=== PATIENT | female | born 1965 | race Caucasian/White ===

== ENCOUNTER 2022-06-05 15:26 | Observation (INO) | payer OTHER, SELFPAY ==
[2022-06-05] VITALS (10 sets, daily range): BP systolic 111–175; BP diastolic 61–98; PULSE 54–87; RESP 16–18; TEMP 36.4–36.9; O2SAT 90–100; BMI 34.7
[2022-06-05] MEDS: 0.9% Normal Saline 1,000 ML 1000 ML IV (15:41)
--- NOTE | 2022-06-05 15:45 | EDS_ITS ---
HPI HPI - GI History of Present Illness Chief Complaint: Abd Pain Narrative Narrative: 57-year-old female presenting with chief complaint of right-sided abdominal pain. Started yesterday and kind of the right flank and radiated to the back and today localizes more to the right flank and the right lower quadrant. She had an outpatient CAT scan today which showed a 3 cm ovarian cyst on the right side as well as acute appendicitis. Patient reports that she had a temperature of 100 ?F yesterday and nausea yesterday. She states she feels a little bit better today. She has not been vomiting. She last ate Ramen noodles at 2 PM. She was able to keep this down. She admits to a little bit of diarrhea. She has not had any coughing or shortness of breath. 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 Home Medications NK 06/05/22 [History Last Taken Unknown] Allergy/AdvReac Type Severity Reaction Status Date / Time Penicillins [PCN] Allergy Hives Verified 06/05/22 15:40 Surgical History Hx of tonsillectomy Social History Smoking Status: Current every day smoker tobacco type: cigarettes ROS ROS ED Constitutional Constitutional ED: Reports chills and fever(s) ENT ENT ED: Denies rhinorrhea or sore throat Cardiovascular Cardiovascular: Denies chest pain, palpitations or racing heartbeat Respiratory/Chest Respiratory/Chest: Denies cough, dyspnea or dyspnea on exertion Gastrointestinal Gastrointestinal: Reports abdominal pain, diarrhea and nausea Genitourinary Genitourinary ED: Denies dysuria Musculoskeletal Musculoskeletal: Denies arthralgias Integumentary Denies abscess or Abrasions Neurologic Neurologic: Denies headache(s) or paresthesias Psychiatric Psychiatric: Denies anxiety or depression Endocrine Endocrinology: Denies polydipsia or polyphagia EXAM Physical Exam Const Vital Signs: 06/05/22 15:27 06/05/22 17:39 Temperature 97.6 F L 98.3 F Temperature Source Temporal Oral Pulse Rate 68 54 L Respiratory Rate 18 16 Blood Pressure 156/95 H 148/94 H Blood Pressure Mean 115 112 Pulse Ox 97 96 Oxygen Delivery Method Room Air Room Air Positive well nourished General Appearance ED: NAD; Negative for pallor HEENT Reports moist mucous membranes normocephalic and atraumatic Eyes PERRL and EOMs intact bilaterally General Eye ED: Negative for pale conjunctiva or scleral icterus Resp normal respiratory effort and clear to auscultation bilaterally Cardio regular rate and regular rhythm GI Palpation: tender RLQ and RUQ Extremity full ROM Neuro CN's II-XII intact bilaterally Sensorium / Orientation: alert, oriented to person, oriented to place and oriented to time Motor Exam: strength 5/5 throughout Psych mental status grossly normal and thought process normal Skin no wounds General Skin Exam: Negative for jaundice or pallor MDM MDM MDM Narrative Medical decision making narrative: Patient presenting with abdominal pain and has a CT scan which shows acute appendicitis. IV access was obtained. CBC and CMP are within normal limits. Lipase is normal. Urinalysis shows a small amount of occult blood. There is no evidence of urinary infection. Rapid COVID-negative. Patient was given IV fluids but declines analgesia or antiemetics. Patient discussed with Dr. Hoyos who is on-call for surgery. She will be kept NPO. He recommended giving her Cipro due to her penicillin allergy. He will take her to the OR today for appendectomy. Impression: 1. Acute appendicitis Lab Data Attestation: I reviewed the patient's lab results. Labs: Laboratory Results - last 24 hr 06/05/22 06/05/22 06/05/22 15:40 15:40 16:05 WBC 9.7 RBC 5.11 Hgb 15.2 H Hct 45.5 MCV 89.0 MCH 29.7 MCHC 33.4 RDW Std Deviation 41.5 RDW Coeff of Cleo 12.7 Plt Count 259 MPV 9.6 Immature Gran % (Auto) 0.200 Neut % (Auto) 63.3 Lymph % (Auto) 24.4 [place] % (Auto) 9.4 Eos % (Auto) 2.3 Baso % (Auto) 0.4 Absolute Neuts (auto) 6.1 Absolute Lymphs (auto) 2.36 Nucleated RBC % 0 Sodium 144 Potassium 3.5 Chloride 107 Carbon Dioxide 29.0 Anion Gap 8 BUN 14 Creatinine 0.97 Estim Creat Clear Calc 50.61 Est GFR (MDRD) Af Amer 76 Est GFR (MDRD) Non-Af 63 BUN/Creatinine Ratio 14.4 Glucose 98 Calcium 9.0 Total Bilirubin 0.50 Direct Bilirubin 0.12 AST 18 ALT 20 Alkaline Phosphatase 85 Total Protein 7.1 Albumin 3.3 Globulin 3.8 Lipase 107 Urine Color Straw Urine Clarity Clear Urine pH 7.0 Ur Specific [place] 1.010 Urine Protein Negative Urine Glucose (UA) Normal Urine Ketones Negative Urine Occult Blood 10 H Urine Nitrite Negative Urine Bilirubin Negative Urine Urobilinogen Normal Ur Leukocyte Esterase Negative Urine RBC 0-5 SEEN Urine WBC 0 SEEN Ur Squamous Epith Cells 5-10 SEEN Urine Bacteria 1+ Urine Mucus 0 SEEN Discharge Plan Triage Chief Complaint: Abd Pain ED Provider: Azar Melendez Dx/Rx/DC Orders Prescriptions: No Action NK Primary Care Provider: Ángela Mario Referrals: Ángela Mario DO [Primary Care Provider] -
[2022-06-05 15:51] LABS: Absolute Lymphocyte Count 2.36 X10^3/uL (0.83-4.51); Absolute Neutrophil Count 6.1 X10^3/uL (2.0-7.7); Basophil# 0.04 X10^3/uL; Basophil% 0.4 % (0-1); Eosinophil# 0.22 X10^3/uL; Eosinophils% 2.3 % (0-5); Hematocrit 45.5 % (37-47); Hemoglobin 15.2 g/dL (12.0-15.0); Lymphocyte # 2.36 X10^3/ul (0.83-4.51); Lymphocyte % 24.4 % (19-41); Mean Corp Hgb Conc 33.4 g/dL (32-36); Mean Corpuscular Hgb 29.7 pg (27.0-32.0); Mean Platelet Vol. 9.6 fl (6.2-12.0); Monocyte# 0.91 X10^3/uL; Monocyte% 9.4 % (0-10); NRBC Flagged by Analyzer 0 % (0-5); Neutrophil # 6.12 X10^3/uL (2.7-7.7); Neutrophil % 63.3 % (47-70); Platelet Count 259 K/mm3 (150-450); RBC Distribution Width CV 12.7 % (11.6-14.6); RBC Distribution Width SD 41.5 fl (35.1-43.9); Red Blood Count 5.11 M/mm3 (4.2-5.4); White Blood Count 9.7 K/mm3 (4.4-11.0)
[2022-06-05] MEDS: Ciprofloxacin 400 MG/200 ML BAG 200 MG IV (16:04)
[2022-06-05 16:09] LABS: Mucous, Urine 0 SEEN /hpf (<or=2+); White Blood Cells 0 SEEN /hpf (0-5)
[2022-06-05 16:10] LABS: AST(SGOT) 18 U/L (15-37); Alanine Aminotransfer ALT/SGPT 20 U/L (13-56); Albumin, Serum 3.3 g/dL (3.2-5.0); Alkaline Phosphatase 85 U/L (45-117); Anion Gap 8 (5-15); BUN 14 mg/dL (7-18); BUN/Creat Ratio 14.4 RATIO (10-20); Bilirubin, Direct 0.12 mg/dL (0.00-0.30); Chloride 107 mmol/L (98-107); Creatinine, Serum 0.97 mg/dL (0.55-1.02); EST Glomerular Filtration Rate 63 mL/min (>60); Est Glom Filt Rate - Afr Amer 76 mL/min (>60); Estimated Creatinine Clearance 50.61 ml/min; Globulin 3.8 g/dL (2.2-4.2); Glucose 98 mg/dL (74-106); Lipase 107 U/L (73-393); Potassium 3.5 mmol/L (3.5-5.1); Protein, Total 7.1 g/dL (6.4-8.2); Sodium Level 144 mmol/L (136-145)
[2022-06-05 16:10] LABS: Color, Urine Straw (Yellow); Glucose, Dipstick Normal (Normal); Ketone-Dipstick Negative (Negative); Leukocyte Esterase-Dipstick Negative /ul (Negative); Nitrite-Dipstick Negative (Negative); Occult Blood-Urine 10 /ul (Negative); Protein-Dipstick Negative (Negative); Urine Bilirubin Dipstick Negative (Negative); Urine Clarity Clear (Clear); Urine Urobilinogen Normal (Normal)
[2022-06-05 16:17] LABS: Bacteria 1+ /hpf (None Seen); Squamous Epithelial Cells - UA 5-10 SEEN /hpf (5-10)
[2022-06-05 16:19] LABS: Red Blood Cells-Urine 0-5 SEEN /hpf (0-5)
--- NOTE | 2022-06-05 18:00 | NURSING ---
SURGERY DOMINIQUE OBS APPENDICITIS
--- NOTE | 2022-06-05 18:14 | HP.PCM_ITS ---
HPI - General General Date of Admission: 06/05/22 Date of Service: 06/05/22 Chief Complaint: Acute onset abdominal pain HPI Narrative ANN JEFFERY, is a 57 F who presents to [facility] with complaints of right-sided abdominal/flank pain for the last 48 hours. She notes that this pain is actually improved today. Yet it still is painful for her to walk. She states that there is some associated nausea but no vomiting. She notes that her bowel movements have been normal. She presented for an outpatient CT scan today which was read as consistent with acute appendicitis and was referred to the ER on report of CT imaging. ER work-up notable for normal CBC?including differential. Patient is hypertensive on my arrival to the room with pressures ranging from 175-196 systolic. Patient denies any history of hypertension. She confirms a history of tobacco use and surgical history of tonsillectomy. 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 Home Medications NK 06/05/22 [History Last Taken Unknown] Allergy/AdvReac Type Severity Reaction Status Date / Time Penicillins [PCN] Allergy Hives Verified 06/05/22 15:40 Surgical History Hx of tonsillectomy Social History Smoking Status: Current every day smoker tobacco type: cigarettes ROS Constitutional Constitutional: Denies chills or fever(s) Gastrointestinal Gastrointestinal: Reports abdominal pain and nausea; Denies constipation or vomiting Musculoskeletal Musculoskeletal: Reports back pain Psychiatric Psychiatric: Reports anxiety Vital Signs Vital Signs Vital Signs: 06/05/22 15:27 06/05/22 17:39 06/05/22 17:51 Temperature 97.6 F L 98.3 F 98.3 F Temperature Source Temporal Oral Oral Pulse Rate 68 54 L 61 Respiratory Rate 18 16 18 Blood Pressure 156/95 H 148/94 H 175/86 H Blood Pressure Mean 115 112 115 Blood Pressure Source Monitor Blood Pressure Position Semi-Fowlers Blood Pressure Location Right Arm Pulse Ox 97 96 98 Oxygen Delivery Method Room Air Room Air Room Air Weight Weight: 190 lb Body Mass Index (BMI) 34.7 Physical Exam Const alert, oriented x3, no apparent distress and well nourished General Appearance: cooperative Resp normal respiratory effort Cardio regular rate GI GI Narrative: Morbidly obese, nondistended, no scars. Soft, tender to palpation along right side of abdomen. Negative psoas and obturator signs Results Lab / Micro Data Result Diagrams: 06/05/22 15:40 06/05/22 15:40 Labs: Laboratory Results - last 24 hr 06/05/22 15:40: WBC 9.7, RBC 5.11, Hgb 15.2 H, Hct 45.5, MCV 89.0, MCH 29.7, MCHC 33.4, RDW Std Deviation 41.5, RDW Coeff of Cleo 12.7, Plt Count 259, MPV 9.6, Immature Gran % (Auto) 0.200, Neut % (Auto) 63.3, Lymph % (Auto) 24.4, [place] % (Auto) 9.4, Eos % (Auto) 2.3, Baso % (Auto) 0.4, Absolute Neuts (auto) 6.1, Absolute Lymphs (auto) 2.36, Nucleated RBC % 0 06/05/22 15:40: Sodium 144, Potassium 3.5, Chloride 107, Carbon Dioxide 29.0, Anion Gap 8, BUN 14, Creatinine 0.97, Estim Creat Clear Calc 50.61, Est GFR (MDRD) Af Amer 76, Est GFR (MDRD) Non-Af 63, BUN/Creatinine Ratio 14.4, Glucose 98, Calcium 9.0, Total Bilirubin 0.50, Direct Bilirubin 0.12, AST 18, ALT 20, A lkaline Phosphatase 85, Total Protein 7.1, Albumin 3.3, Globulin 3.8, Lipase 107 06/05/22 16:05: Urine Color Straw, Urine Clarity Clear, Urine pH 7.0, Ur Specific [place] 1.010, Urine Protein Negative, Urine Glucose (UA) Normal, Urine Ketones Negative, Urine Occult Blood 10 H, Urine Nitrite Negative, Urine Bilirubin Negative, Urine Urobilinogen Normal, Ur Leukocyte Esterase Negative, Urine RBC 0-5 SEEN, Urine WBC 0 SEEN, Ur Squamous Epith Cells 5-10 SEEN, Urine Bacteria 1+, Urine Mucus 0 SEEN Micro: Microbiology 06/05/22 15:47 Nasal Secretion SARS-CoV-2 Antigen (Rapid) - Final Assessment & Plan Assessment/Plan (1) Acute appendicitis: PLAN: Patient presents with signs and symptoms of acute appendicitis?including CT evidence. I have shared with her that it is somewhat atypical to have an improvement in her pain without treatment?she confirms that she has not received any antibiotic therapy. I also have shared with her that it is atypical to not have a white blood cell count or left shift. On hearing this, she questions whether she really needs the surgery. I then shared with her the sensitivity of CT imaging for appendicitis as well as reframed the situation and let her know what the usual course is for perforated appendicitis if we dismissed her current presentation. Contrasting the 2 scenarios, she confesses she sees the rationale and proceeding with laparoscopic appendectomy now. Therefore, we will plan for emergent laparoscopic appendectomy. Following disposition will be d ependent on intraoperative findings and postoperative recovery. Antibiotics have already been dosed by emergency medicine. Charges/Coding Visit Charges OBSV E&M: 73207 Initial observation care L2
[2022-06-05] MEDS: hydrALAZINE 20 MG/ML Vial 5 MG IV (18:15)
[2022-06-05] MEDS: 0.9% Normal Saline 1,000 ML 125 ML IV ×2 (18:22→21:22)
--- NOTE | 2022-06-05 20:00 | APP_PTH ---
PATIENT: ANN JEFFERY LOC: MS3 U#:[id number] AGE/SX: 57/F ROOM: [facility] RE06/05/[address]: Dr. Ernesto Hoyos MD : 1965 BED: 1 DIS: 06/06/2022 SPEC #: [id number] RECD: 06/08/22 09:57 STATUS: SHONA REVivian #: [id number] ALFONZO: 06/05/22 20:[address]: Ernesto Hoyos DEPT: SURGICAL PATHOLOGY RECD BY: Poly Reed ENTERED: 06/08/22 12:37 SP TYPE: APPENDIX OTHR DR: Dr. Ángela Mario, Tissues: Appendix, NOS Procedures: Surgery Specimen Level III HEADER OPERATION: Laparoscopic appendectomy PRE-OP DIAGNOSIS: Acute appendicitis TISSUE SUBMITTED: Appendix MICROSCOPIC DIAGNOSIS Appendix, appendectomy: Acute necrotizing appendicitis. Acute serositis. AM:jj 06/09/2022 MICROSCOPIC DESCRIPTION Slides are reviewed. GROSS DESCRIPTION Received in fixative is one container labeled with the patient's name and designated appendix. The specimen consists of an S-shaped appendix measuring 10 cm in length and up to 1 cm in diameter. The attached periappendiceal adipose tissue measures up to 2.5 cm in width. The serosa is congested. No obvious perforation is identified. The lumen does not contain any fecalith. Jewelry Consultant sections are submitted in one cassette. / SJ:rg 06/08/2022 TC:2 CPT: 44323
--- NOTE | 2022-06-05 20:05 | OP.PCM_ITS ---
Report of Operation Date of Procedure: 06/05/22 Pre-Operative Diagnosis: Appendicitis Post-Operative Diagnosis: Same Surgery/Procedure Performed:: Laparoscopic appendectomy Description of Surgical Findings:: ? Mildly, acutely inflamed appendix along the midportion to the tip (base relatively preserved) without signs of perforation Surgeon: Ernesto Hoyos heavy equipment operating engineer: None Anesthesiologist: Lilli Pradhan Specimen's removed: Appendix Drains: None Estimated Blood Loss (mL): 10 Description of Procedure: After appropriate identification in the preoperative holding area, the patient was brought to the operating room and placed supine on the operating room table. Antibiotics had been preoperatively administered by emergency medicine in the emergency room. Patient was then induced with general endotracheal anesthetic. The abdomen was prepped and draped in usual sterile fashion. Formal timeout was conducted to confirm both the patient and the procedure. A supraumbilical incision was made and carried down to the level of the fascia which was sharply opened. After opening the peritoneum in like fashion a finger sweep was made to confirm position, and a balloon trocar was placed and pneumoperitoneum was established to 15 mmHg. Patient was positioned in Trendelenburg with the left side down. 2 additional 5 mm trocars were placed in the left lower quadrant and suprapubic positions. The peritoneum was inspected and there were no signs of inadvertent injury from this [place] entry. The appendix was visualized with mild to moderate inflammation extending from the midportion to the tip but without any evidence of perforation. A small amount of serous fluid was collected adjacent to the appendix along the right paracolic gutter. The harmonic scalpel was used to free up several attachments between the base of the appendix and the terminal ileum. Then using blunt laparoscopic dissection, a window was made in the mesoappendix adjacent to the appendiceal base. Then the base of the appendix was sealed and amputated with the use of an Endo HERNESTO stapler (blue load). The mesoappendix was then divided adjacent to the appendix with the use of our harmonic scalpel. The appendix was placed in an Endo Catch bag. The staple line was inspected for hemostasis and there was some bleeding on the lateral aspect of the staple line. Therefore, I applied very selective electrocautery under direct laparoscopic vision to the staple line. This resulted in hemostasis of the staple line, however, adjacent this area on the posterior aspect of the cecum there was still some oozing. I did not feel comfortable applying energy in this area so I placed a piece of Surgicel and introduced a Ray-Loraine to the peritoneum to hold manual pressure over this area. After this pressure was held, the area was reinspected and there is only a small amount of clot along the right paracolic gutter. Therefore I left the Surgicel intact and pulled down a bit of pericolic fat to cover the staple line. The Ray-Loraine and appendix was then removed from the supraumbilical port site and pneumoperitoneum was then evacuated. The supraumbilical port site fascia was closed with #1 Vicryl in a [id number] fashion. The port sites were infiltrated with 16 mL (total) local anesthetic (0.25% bupivacaine). The skin of each port site was closed with 4-0 Monocryl in a subcuticular fashion. Steri-Strips and OpSite dressings were applied. Patient tolerated procedure well without any apparent complications. They were awoken from general anesthetic without issue and transferred to post anesthesia care unit for ongoing recovery. Complications None Admit VTE Documentation VTE Mechan Device Prophylaxis: SCD's Procedures Digestive 40xxx-49xxx: 48798 Laparoscopy appendectomy
[2022-06-05] MEDS: Lactated Ringers 1,000 ML 15 ML IV (20:45)
[2022-06-05] MEDS: 0.9% Saline Lock 10 ML Syringe IV (21:22)
[2022-06-05] MEDS: Ibuprofen 400 MG Tablet PO (23:30)
[2022-06-06 01:31] VITALS: BP 127/71; PULSE 55; RESP 16; TEMP 36.7; O2SAT 96
[2022-06-06 05:29] VITALS: BP 131/69; PULSE 49; RESP 18; TEMP 36.6; O2SAT 96
[2022-06-06] MEDS: Ibuprofen 400 MG Tablet PO ×2 (05:36→12:10)
[2022-06-06] MEDS: 0.9% Normal Saline 1,000 ML 125 ML IV (05:36)
--- NOTE | 2022-06-06 06:54 | NURSING ---
pt walked two full laps in the aceves. pt tolerated well. pt reports flatus.
[2022-06-06 08:41] VITALS: BP 132/80; PULSE 60; RESP 18; TEMP 36.4; O2SAT 93
--- NOTE | 2022-06-06 08:58 | DCINST_ITS ---
Discharge Instructions Diet Discharge Diet: No restrictions Activity Discharge Activity: May Not Drive (May not drive while taking narcotic pain medications) and May Shower (May begin showering 48hours postop. Please avoid baths or submerging surgical incisions before skin is completely healed.) May shower in (days): 2 May resume sexual activity in: 2 weeks Ice area for (Minutes): 20 Lifting Restrictions: Limit lifting to <15lbs for 2 weeks following surgery Dressing / Incision Call your doctor if your incision/area has: Sudden Increased Bleeding, Increased Pain/ Swelling, Increased Redness, Foul Smelling Discharge and Swelling at the incision site Call your doctor if you observe: Fever of 101 or Higher, Inability to urinate, Inability to have a bowel movement and Uncontrolled pain Suture Line Care: Avoid Pulling/Pushing Remove Dressing in: 2 days (Please leave steri strips (medical tape) in place until they fall off spontaneously or are removed at your follow-up appointment) Cleanse incision/area with: Keep Dressing Clean & Dry Additional Dressing/Incision Instructions:: Please leave Steri-Strips intact until they fall off spontaneously or are taken off at your follow-up visit Follow Up Care Please Follow Up With: Ernesto Hoyos MD When: 7 to 10 days postop Test Results: Test results from this visit will be discussed in further detail at your follow- up appointment, if applicable. Discharge Plan Admission Admit Date/Time: 06/05/22 20:24 Primary Reason for Your Visit: Acute appendicitis Attending Provider: Ernesto Hoyos Primary Care Provider: Ángela Mario Instructions Patient Instructions: Appendectomy Lap Dc Discharge Orders/Prescriptions Prescriptions: No Action NK Referrals / Follow Up: Ángela Mario DO [Primary Care Provider] - Disposition Disposition (needs filled in before D/C Order can be placed): Home, Self Care
--- NOTE | 2022-06-06 09:03 | PCM.DC.SUM ---
Providers Date of Admission: 06/05/22 Primary Care Physician: Dr. Ángela Mario, DO Reason For Visit: ACUTE APPENDICITIS Diagnosis Discharge Diagnosis (1) Acute appendicitis: Status: Acute Code(s): K35.80 - Unspecified acute appendicitis Plan: Patient presents with signs and symptoms of acute appendicitis?including CT evidence. I have shared with her that it is somewhat atypical to have an improvement in her pain without treatment?she confirms that she has not received any antibiotic therapy. I also have shared with her that it is atypical to not have a white blood cell count or left shift. On hearing this, she questions whether she really needs the surgery. I then shared with her the sensitivity of CT imaging for appendicitis as well as reframed the situation and let her know what the usual course is for perforated appendicitis if we dismissed her current presentation. Contrasting the 2 scenarios, she confesses she sees the rationale and proceeding with laparoscopic appendectomy now. Therefore, we will plan for emergent laparoscopic appendectomy. Following disposition will be dependent on intraoperative findings and postoperative recovery. Antibiotics have already been dosed by emergency medicine. Medications at Discharge Home Medications NK 06/05/22 Hospital Course Operations appendectomy Procedures None Summary of Care Provided Hospital Course: Patient presented to [facility] ER on 06/05/[address] scan was read as consistent with acute appendicitis. On evaluation in the emergency room, patient was informed that her presentation was somewhat atypical given reports of pain improvement in the past 24 hours and completely normal CBC. Yet, given the CT findings and established sensitivity of CT imaging for appendicitis, we elected to proceed with laparoscopic appendectomy. This procedure was undertaken uncomplicated fashion the evening of 06/05/2022 and patient was admitted for observation to the hospital thereafter. This morning, postoperative day 1, patient is found doing very well. She denies any pain. She states that her presenting right lower quadrant discomfort is now gone. She tolerated a diet advancement and request discharge home. This was granted given these clinical improvements and we discussed both postoperative expectations as well as plans for a clinic follow-up in 7 to 10 days. Physical Exam Const alert, oriented x3 and no apparent distress General Appearance: cooperative Resp normal respiratory effort GI GI Narrative: Nondistended, operative dressings appropriate with out strikethrough. Minimally tender to palpation about the incisions?patient denying any right lower quadrant tenderness with palpation. Weight / BMI Weight Weight: 190 lb Body Mass Index (BMI) 34.7 ABG / Lab / Microbiology Data Result Diagrams: 06/05/22 15:40 06/05/22 15:40 Laboratory: Laboratory Results - last 24 hr 06/05/22 15:40: WBC 9.7, RBC 5.11, Hgb 15.2 H, Hct 45.5, MCV 89.0, MCH 29.7, MCHC 33.4, RDW Std Deviation 41.5, RDW Coeff of Cleo 12.7, Plt Count 259, MPV 9.6, Immature Gran % (Auto) 0.200, Neut % (Auto) 63.3, Lymph % (Auto) 24.4, [place] % (Auto) 9.4, Eos % (Auto) 2.3, Baso % (Auto) 0.4, Absolute Neuts (auto) 6.1, Absolute Lymphs (auto) 2.36, Nucleated RBC % 0 06/05/22 15:40: Sodium 144, Potassium 3.5, Chloride 107, Carbon Dioxide 29.0, Anion Gap 8, BUN 14, Creatinine 0.97, Estim Creat Clear Calc 50.61, Est GFR (MDRD) Af Amer 76, Est GFR (MDRD) Non-Af 63, BUN/Creatinine Ratio 14.4, Glucose 98, Calcium 9.0, Total Bilirubin 0.50, Direct Bilirubin 0.12, AST 18, ALT 20, Alkaline Phosphatase 85, Total Protein 7.1, Albumin 3.3, Globulin 3.8, Lipase 107 06/05/22 16:05: Urine Color Straw, Urine Clarity Clear, Urine pH 7.0, Ur Specific [place] 1.010, Urine Protein Negative, Urine Glucose (UA) Normal, Urine Ketones Negative, Urine Occult Blood 10 H, Urine Nitrite Negative, Urine Bilirubin Negative, Urine Urobilinogen Normal, Ur Leukocyte Esterase Negative, Urine RBC 0-5 SEEN, Urine WBC 0 SEEN, Ur Squamous Epith Cells 5-10 SEEN, Urine Bacteria 1+, Urine Mucus 0 SEEN Microbiology: Microbiology 06/05/22 15:47 Nasal Secretion SARS-CoV-2 Antigen (Rapid) - Final D/C Instructions Discharge Diet: No restrictions May shower in (days): 2 May resume sexual activity in: 2 weeks Ice area for (Minutes): 20 Call your doctor if your incision/area has: Sudden Increased Bleeding, Increased Pain/ Swelling, Increased Redness, Foul Smelling Discharge and Swelling at the incision site Call your doctor if you observe: Fever of 101 or Higher, Inability to urinate, Inability to have a bowel movement and Uncontrolled pain Suture Line Care: Avoid Pulling/Pushing Cleanse incision/area with: Keep Dressing Clean & Dry Additional Dressing/Incision Instructions: Please leave Steri-Strips intact until they fall off spontaneously or are taken off at your follow-up visit Please Follow Up With: Ernesto Hoyos MD When: 7 to 10 days postop Meaningful Use Info Meaningful Use Diagnoses (Choose all that apply): None applicable Discharge Plan Admission Admit Date/Time: 06/05/22 20:24 Primary Reason for Your Visit: Acute appendicitis Attending Provider: Ernesto Hoyos Primary Care Provider: Ángela Mario Instructions Patient Instructions: Appendectomy Lap Dc Discharge Orders/Prescriptions Prescriptions: No Action NK Referrals / Follow Up: Ángela Mario DO [Primary Care Provider] - Disposition Disposition (needs filled in before D/C Order can be placed): Home, Self Care Charges/Coding Visit Charges Inpatient E&M: 08427 Disch Hosp
== END 2022-06-06 12:30 | disposition home or self-care (01) ==
LOC: ED 16:10 → MS3 18:24
PROVIDERS: Admitting Provider Surgery; Emergency Provider Student in an Organized Health Care Education/Training Program; PCP Internal Medicine; Visit Provider Surgery
PROC: 0DTJ4ZZ Resection of Appendix, Percutaneous Endoscopic Approach (ICD-10-PCS; CPT 44970; principal; 2022-06-05 19:40)
DX: K35.80 Unspecified acute appendicitis (principal); Z20.822 Contact with and (suspected) exposure to COVID-19; F17.210 Nicotine dependence, cigarettes, uncomplicated; N83.201 Unspecified ovarian cyst, right side; E66.9 Obesity, unspecified; I10 Essential (primary) hypertension; Z68.34 Body mass index [BMI] 34.0-34.9, adult
CPT/HCPCS: 44970; 00840; 80048; 80076; 81001; 83690; 85025; 87811; 88304; 99218; 99284; J7030; J7120; A4216; G0378; J0744; J2405

== ENCOUNTER → 2022-06-05 | Outpatient (CLI) | payer OTHER, SELFPAY ==
--- NOTE | 2022-06-05 11:37 | CT_ITS ---
INDICATION: FLANK PAIN EXAMINATION: CT ABDOMEN AND PELVIS WITHOUT CONTRAST - CT Abdomen And Pelvis W/O Contrast Injection TECHNIQUE: Helically acquired images were obtained of the abdomen and pelvis without oral or IV contrast. A radiation dose optimization technique was used for this scan. IV Contrast dosage and agent: None. Oral contrast: None. COMPARISON: None. FINDINGS: LOWER CHEST: Lung bases are clear. No cardiomegaly or pericardial effusion. LIVER: Homogeneous. No focal mass. GALLBLADDER AND BILIARY TREE: No calcified gallstones. No gallbladder distension or wall edema. No intra- or extrahepatic biliary ductal dilation. PANCREAS: No focal cystic or solid mass. SPLEEN: Normal size without focal cystic or solid mass. ADRENAL GLANDS: No nodules. KIDNEYS AND URETERS: Normal renal size and position. No hydronephrosis. A 0.3 cm calcification is visualized in the upper pole of the right kidney adjacent to a 1.8 cm cyst. PERITONEUM: No ascites or free air. No other fluid collection. BOWEL: There is thickening of the proximal and mid segments of the appendix with stranding of the adjacent fat planes consistent with acute appendicitis this is visualized on axial series 2 image 63/67. No stomach or bowel distension. LYMPH NODES: No enlarged mesenteric or retroperitoneal lymph nodes. VESSELS: Aorta is non-dilated. URINARY BLADDER: Unremarkable. REPRODUCTIVE ORGANS: No pelvic masses. Anteverted uterus. Surgical clips visualized in bilateral fallopian tubes. A prominent cyst is visualized in the right ovary measuring 3.1 cm. ABDOMINAL WALL: No discrete abdominal or pelvic wall hernia. BONES: No lytic or blastic abnormality. CT/Abdomen/Pelvis without Cont IMPRESSION: ACUTE APPENDICITIS. 3 cm right ovarian cyst. Electronically Signed: Giovanny Jurado MD at 12:55 EDT ,
== END | disposition home or self-care (01) ==
LOC: CT 11:36
PROVIDERS: PCP Internal Medicine; Referring Provider Nurse Practitioner Family; Visit Provider Nurse Practitioner Family
DX: R10.9 Unspecified abdominal pain (principal)
CPT/HCPCS: 74176

== ENCOUNTER 2023-11-22 00:57 | Emergency (ER) | payer OTHER, SELFPAY ==
[2023-11-22] VITALS (9 sets, daily range): BP systolic 147–203; BP diastolic 94–103; PULSE 62–74; RESP 10–20; TEMP 36.4–36.6; O2SAT 93–99; BMI 40.1
--- NOTE | 2023-11-22 01:03 | EDS_ITS ---
HPI History of Present Illness Chief Complaint: Hypertension [facility] Medical History Streptococcus A carrier or suspected carrier Home Medications NK 06/05/22 [History Last Taken Unknown] Allergy/AdvReac Type Severity Reaction Status Date / Time Penicillins [PCN] Allergy Hives Verified 11/22/23 00:57 Surgical History History of tubal ligation Hx of tonsillectomy Social History Smoking Status: Former smoker EXAM Physical Exam Const Vital Signs: 11/22/23 00:58 11/22/23 00:58 11/22/23 01:19 Temperature 97.8 F Temperature Source Temporal Pulse Rate 71 65 Respiratory Rate 14 12 Respiratory Effort Normal Non-Labored Respiratory Pattern Normal Blood Pressure 203/94 H Blood Pressure Mean 130 Pulse Ox 97 94 Oxygen Delivery Method Room Air 11/22/23 01:20 11/22/23 01:30 11/22/23 01:30 Temperature Temperature Source Pulse Rate 66 62 Respiratory Rate 12 10 L Respiratory Effort Respiratory Pattern Blood Pressure 160/103 H 160/103 H Blood Pressure Mean 121 121 Pulse Ox 95 93 Oxygen Delivery Method 11/22/23 01:42 11/22/23 01:45 11/22/23 01:50 Temperature Temperature Source Pulse Rate 74 70 69 Respiratory Rate 20 H 14 16 Respiratory Effort Respiratory Pattern Blood Pressure 162/94 H Blood Pressure Mean 115 Pulse Ox 97 95 97 Oxygen Delivery Method 11/22/23 02:00 Temperature Temperature Source Pulse Rate 63 Respiratory Rate 12 Respiratory Effort Respiratory Pattern Blood Pressure 147/103 H Blood Pressure Mean 119 Pulse Ox 95 Oxygen Delivery Method MDM MDM MDM Narrative Medical decision making narrative: HISTORY OF PRESENT ILLNESS: 58-year-old female presents with concern for elevated blood pressure. Blood pressure 160/100s at PCP office visit last week. Notes she awoke tonight with pressure in the back of her head and numbness and tingling around her lips and bilateral upper extremities. Which prompted her visit. She denies any focal loss of movement, sensation, facial drooping, loss of vision, incoordination. She denies any medical history. She takes no medications. Denies family or personal history of aneurysms or intracranial bleeding or other connective tissue disorders. Patient denies sudden onset or thunderclap headache, denies maximal intensity within 1 minute, vomiting, neck pain, stiffness, changes in vision, fever, history malignancy, syncope, or seizures associated with headache. REVIEW OF SYSTEMS: Pertinent positives: Head pressure, tingling around the mouth bilateral upper and lower extremities Pertinent negatives: Chest pain, shortness breath, decreased urination, leg swelling, focal weakness, slurred speech, difficulty swallowing speaking or facial drooping PHYSICAL EXAM: Nursing triage notes reviewed, Vital signs reviewed Constitutional: please see mdm HENT: MMM Eyes: Pupils equal round and reactive to light, Extraocular muscles intact Neck: No stridor, no JVD, full neck ROM Lungs: Clear to auscultation, No wheezing or rales. No increased work of breathing, no conversational dyspnea, no accessory muscle use, no nasal flaring. No respiratory distress noted Heart: Regular rate and rhythm, No murmurs, No rubs and No gallops, 2+ distal pulses (radial, femoral, posterior tibial) in all extremities Abdomen: Soft, there is no tenderness, rigidity, rebound or guarding, no obvious peritoneal signs, no palpable pulsatile abdominal masses, no auscultated abdominal bruit : No CVAT Extremities: No edema Neuro: Alert and oriented x3, neuro exam at baseline, cranial nerves II through XII are intact. No pain with extraocular muscle movement. There is negative test of skew. 5 of 5 strength in upper and lower extremities in flexion extension. Intact sensation to light touch in upper and lower extremity dermatomes. No truncal or extremity ataxia. No dysdiadochokinesia. Normal gait. 2+ reflexes in upper and lower extremities. No meningeal signs. Negative Babinski. NIH of 0. Skin: No rash or lesions noted MEDICAL DECISION MAKING: Chief Complaint: Elevated blood pressure External records reviewed: No recent advanced imaging of the chest, head, no recent echocardiograms, cardiac stress test or cardiac catheterizations. Factors affecting care: none Social determinants of health: Denies illicit drug use History obtained from others: Consults: none [facility] Narrative: Patient was initially hypertensive otherwise hemodynamically stable afebrile nontoxic-appearing. Initial neurologic exam was intact. NIH of 0. I considered the following differential diagnosis: ICH, arrhythmia, myocardial anemia, CHF, kidney dysfunction I obtained a broad lab and imaging workup to further elucidate the etiology the patient complaints. Specifically looking for endorgan damage from elevated blood pressure. I opted to allow the patient to settle in the emergency department rather than abruptly treating her blood pressure given she had no focal deficits or definitive effects of high blood pressure I was more concerned about lowering her blood pressure prematurely and causing relative hypoperfusion. ALL IMAGES (IF OBTAINED) HAVE BEEN PERSONALLY REVIEWED AND INTERPRETED BY MATT CAMPBELL. EKG with normal sinus rhythm, normal axis, no intervals, no STEMI High-sensitivity troponin is negative, no evidence of myocardial ischemia I have personally reviewed the patient's chest x-ray. Chest x-ray is unremarkable for pulmonary edema, pneumothorax, pneumonia or focal cardiopulmonary abnormality. CT scan of the head shows no evidence of ICH BNP within the limits suggestive of no ventricular stretch, heart failure CBC without leukocytosis, severe anemia, no thrombocytopenia. BMP without evidence of significant electrolyte abnormalities, no anion gap, no acute kidney injury. The synthesis of the patient's history, physical exam, labs images suggest no evidence of endorgan damage from elevated blood pressure. Patient blood pressure improved from systolic of 200 down to a systolic of 160 which is at goal of ~20% decreased acutely. Patient noted complete resolution of head pressure numbness and tingling. No indication for further blood pressure treatment here in the ED. Will have her follow with her primary doctor for outpatient treatment. The patient and/or family, caregivers express understanding. The patient and/or family, caregivers agrees with the plan. Shared decision making: I will have a discussion with the patient and or visitors regarding risk/benefits of further testing or admission. They will be made aware of of the risk/benefits inherent in this decision they will be given the opportunity to voice understanding. Total critical care time today provided was at least 0 minutes. This excludes separately billable procedures. Critical care time (if documented) is secondary to the patient having high probability of clinically significant/life threatening deterioration in the patient's condition which required my urgent intervention. Impression: 1. Elevated blood pressure Dispo: Discharge home This note was generated with I[employer] dictation software. It may contain incorrect words, spelling, and punctuation that were not noted in review of the chart prior to signing. Lab Data Labs: Laboratory Results - last 24 hr 11/22/23 01:27 WBC 8.3 RBC 5.11 Hgb 15.2 H Hct 45.2 MCV 88.5 MCH 29.7 MCHC 33.6 RDW Std Deviation 40.6 RDW Coeff of Cleo 12.4 Plt Count 298 MPV 9.4 Immature Gran % (Auto) 0.400 Neut % (Auto) 50.3 Lymph % (Auto) 35.5 [place] % (Auto) 9.8 Eos % (Auto) 3.0 Baso % (Auto) 1.0 Absolute Neuts (auto) 4.2 Absolute Lymphs (auto) 2.95 Nucleated RBC % 0 Sodium 141 Potassium 3.9 Chloride 106 Carbon Dioxide 27.0 Anion Gap 8 BUN 17 Creatinine 0.99 Estim Creat Clear Calc 66.81 Est GFR (MDRD) Af Amer 74 Est GFR (MDRD) Non-Af 61 BUN/Creatinine Ratio 17.2 Glucose 108 H Calcium 9.8 Troponin I High Sens 11 B-Natriuretic Peptide 7.2 Radiography Diagnostic Testing: Clinical Impression(s) from Imaging Studies Brain CT 11/22/23 01:18 IMPRESSION: Normal noncontrast CT of the head. Electronically Signed: Edinson Lawler DO at 1:45 EDT Reading Location ID and State: [facility] / [place] Tel , Service support , Chest X-Ray 11/22/23 01:34 IMPRESSION: No evidence of acute cardiopulmonary disease. Electronically Signed: Edinson Lawler DO at 1:46 EDT , Discharge Plan Triage Chief Complaint: Hypertension ED Provider: Chandrakant Garcia Dx/Rx/DC Orders Clinical Impression: Elevated blood pressure reading Instructions: ED High Blood Pressure Hypertension Prescriptions: No Action NK Primary Care Provider: Ángela Mario Referrals: Ángela Mario DO [Primary Care Provider] - Activity Restrictions/Additional Instructions: Thank you for trusting us with your care today! You may diagnosed with elevated blood pressure. This is your second set reading. Please monitor your diet. Decrease salt intake. This includes prepackaged foods, deli meats, restaurant foods. Please participate in daily exercise which is defined as a 30-minute walk. Please return to the emergency department if your symptoms change or worsen. Specifically develop chest pain, shortness of breath, leg swelling, headache, loss of movement or sensation. Please follow with your primary care physician for initiation of blood pressure medicine for further outpatient evaluation and management. Disposition Disposition: Home, Self Care
--- NOTE | 2023-11-22 01:18 | CT_ITS ---
INDICATION: headache, elevated BP EXAMINATION: CT BRAIN - CT Head or Brain W/O Contrast Injection TECHNIQUE: Multiple axial images were obtained of the head with sagittal and coronal reconstructed images. Individualized dose optimization techniques were used for this CT. IV contrast dosage and agent: None. COMPARISON: None. FINDINGS: BRAIN PARENCHYMA: No evidence of an acute infarct or intracranial hemorrhage. No evidence of a mass. CSF SPACES: The ventricles, sulci and subarachnoid cisterns are appropriate for age. CALVARIUM, SKULL BASE, PARANASAL SINUSES AND MASTOID AIR CELLS: No fracture. Mastoid air cells are clear. Visualized paranasal sinuses are unremarkable. ORBITS: The globes, extraocular muscles, optic nerves and retrobulbar fat are unremarkable. CT/Brain/Head without Contrast IMPRESSION: Normal noncontrast CT of the head. Electronically Signed: Edinson Lawler DO at 1:45 EDT ,
--- NOTE | 2023-11-22 01:18 | EKG12_ITS ---
Test Reason : DYSRHYTHMIA Blood Pressure : / mmHG Vent. Rate : 062 BPM Atrial Rate : 062 BPM P-R Int : 160 ms QRS Dur : 094 ms QT Int : 434 ms P-R-T Axes : 045 -29 031 degrees QTc Int : 440 ms Normal sinus rhythm with sinus arrhythmia CAN NOT RULE OUT Inferior infarct (cited on or before 26-SEP-1998) Abnormal ECG Confirmed by Ernesto Krishna ([id number]), offline editor NOLBERTO HECK ([id number]) on 11/23/2023 7:16:47 AM Referred By: Confirmed By:Ernesto Krishna
--- OUTSIDE RECORDS SUMMARY | 2023-11-22 01:26 | XMS RPT_ITS | CCD ---
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 Status:Active Mother Comments:In good health Status:Active Unknown Family Member Name Dates Details Father Comments:DM at age 32 , [place] a t age 34 at age 50 Status:Active First Degree Relatives Comments:DM, Heart DX, HBP Status:Active Mother Comments:In good health Status:Active Unknown Family Member Name Dates Details Father Comments:DM at age 32 , [place] a t age 34 at age 50 Status:Active First Degree Relatives Comments:DM, Heart DX, HBP Status:Active Mother Comments:In good health Status:Active Summary Purpose Advance Directives No Advanced Directives Records FoundNo Advanced Directives Records Found Health Concerns Infection Onset Date Last Indicated Resolved Time COVID-19 Rule-Out 09/28/2022 09/28/2022 Infection Onset Date Last Indicated Resolved Time COVID-19 Rule-Out 09/28/2022 09/28/2022 09/29/2022 5:14 AM EST Additional Source Comments INFORMATION SOURCE (unrecogn ized section and content) DATE CREATED AUTHOR AUTHOR'S ORGANIZ ATION 09/29/2022 [facility] Source Comments (unrecognize d section and content) In the event this informatio n is protected by the Federal Confidentiality of Alcohol and Drug Abuse Patient Records regulations: The Federal rules restrict any use of the information to criminally investigate or prosecute any alcohol or drug abuse patient.[facility] the event this information is protected by the Federal Confidentiality of Alcohol and Drug Abuse Patient Records regulations: The Federal rules restrict any use of the information to criminally investigate or prosecute any alcohol or drug abuse patient.[facility] Reason for Visit (unrecogniz ed section and content) Reason Comments Results Care Teams (unrecognized sec tion and content) Vessel Traffic Officer Relationship Specialty Start Date End Date Ángela Welsh, [address] [place] [address] PCP - General Internal Medicine 06/07/19 FOR RECORDS PERTAINING TO PATIENTS WHO ARE OR HAVE BEEN ENROLLED IN A CHEMICAL DEPENDENCY/SUBSTANCEABUSE PROGRAM, SOME INFORMATION MAY BE OMITTED. This clinical summary was aggregated from multiple sources. Caution should be exercised in using it in the provision of clinical care. This summary normalizes information from multiple sources, and as a consequence, information in this document may materially change the coding, format and clinical context of patient data. In addition, data may be omitted in some cases. CLINICAL DECISIONS SHOULD BE BASED ON THE PRIMARY CLINICAL RECORDS. [facility]. provides no warranty or guarantee of the accuracy or completeness of information in this document.
[2023-11-22 01:33] LABS: Absolute Lymphocyte Count 2.95 X10^3/uL (0.83-4.51); Absolute Neutrophil Count 4.2 X10^3/uL (2.0-7.7); Basophil# 0.08 X10^3/uL; Eosinophil# 0.25 X10^3/uL; Hematocrit 45.2 % (37-47); Hemoglobin 15.2 g/dL (12.0-15.0); Lymphocyte # 2.95 X10^3/ul (0.83-4.51); Lymphocyte % 35.5 % (19-41); Mean Corp Hgb Conc 33.6 g/dL (32-36); Mean Corpuscular Hgb 29.7 pg (27.0-32.0); Mean Corpuscular Volume 88.5 fL (81-99); Mean Platelet Vol. 9.4 fl (6.2-12.0); Monocyte# 0.81 X10^3/uL; Monocyte% 9.8 % (0-10); NRBC Flagged by Analyzer 0 % (0-5); Neutrophil # 4.18 X10^3/uL (2.7-7.7); Neutrophil % 50.3 % (47-70); Platelet Count 298 K/mm3 (150-450); RBC Distribution Width CV 12.4 % (11.6-14.6); RBC Distribution Width SD 40.6 fl (35.1-43.9); Red Blood Count 5.11 M/mm3 (4.2-5.4); White Blood Count 8.3 K/mm3 (4.4-11.0)
--- NOTE | 2023-11-22 01:34 | RAD_ITS ---
INDICATION: elevated BP r/o CHF EXAMINATION/TECHNIQUE: X-RAY - XR Chest 1 View COMPARISON: 05/03/2007. FINDINGS: LINES/DEVICES: None. LUNGS: No consolidation or evidence of an effusion. No evidence of edema or a pneumothorax. Stable calcified granuloma in the left upper lung. MEDIASTINUM AND CARDIOVASCULAR STRUCTURES: Cardiac silhouette is normal in size and contour. Mediastinum is unremarkable. BONES AND SOFT TISSUES: No acute abnormality. RAD/Chest 1 View (Portable) IMPRESSION: No evidence of acute cardiopulmonary disease. Electronically Signed: Edinson Lawler DO at 1:46 EDT ,
[2023-11-22 01:48] LABS: BNP,B-Type NATRIURETIC PEPTIDE 7.2 pg/mL (0-100)
[2023-11-22 01:52] LABS: Anion Gap 8 (5-15); BUN 17 mg/dL (7-18); BUN/Creat Ratio 17.2 RATIO (10-20); Calcium,Total 9.8 mg/dL (8.5-10.1); Chloride 106 mmol/L (98-107); Creatinine, Serum 0.99 mg/dL (0.55-1.02); EST Glomerular Filtration Rate 61 mL/min (>60); Est Glom Filt Rate - Afr Amer 74 mL/min (>60); Estimated Creatinine Clearance 66.81 ml/min; Glucose 108 mg/dL (74-106); Potassium 3.9 mmol/L (3.5-5.1); Sodium Level 141 mmol/L (136-145); Troponin-I HS 11 pg/mL (3.0-54.0)
== END 2023-11-22 02:18 | disposition home or self-care (01) ==
PROVIDERS: Emergency Provider Emergency Medicine; PCP Internal Medicine; Visit Provider Emergency Medicine
DX: R03.0 Elevated blood-pressure reading, without diagnosis of hypertension (principal); Z87.891 Personal history of nicotine dependence; Z98.51 Tubal ligation status
CPT/HCPCS: 70450; 71045; 80048; 83880; 84484; 85025; 93005; 99284; A4216

== ENCOUNTER → 2023-11-29 | Outpatient (CLI) | payer OTHER, SELFPAY ==
--- NOTE | 2023-11-29 09:30 | MRI_ITS ---
HISTORY: DISORIENTATION. TECHNIQUE: Multiplanar and multisequence MR images of the brain were obtained without contrast. 287 images. COMPARISON: CT 11/22/2023. FINDINGS: BRAIN PARENCHYMA: Very mild periventricular white matter changes. No abnormal focus of restricted diffusion. No acute intracranial hemorrhage identified. CSF SPACES: Cerebral ventricles, cortical sulci, and other extra-axial CSF spaces within normal limits in size for age. No significant midline shift or other mass effect.No extra-axial fluid collection. VASCULAR SYSTEM: Major intracranial flow voids are maintained. PARANASAL SINUSES AND MASTOID AIR CELLS: No significant air fluid levels. ORBITS: Symmetric contents. MRI/Brain without Contrast IMPRESSION: No evidence for acute infarct. Mild chronic involutional and white matter changes. Electronically Signed: Aracely Stringer MD at 13:03 EDT ,
== END | disposition home or self-care (01) ==
PROVIDERS: PCP Internal Medicine; Referring Provider Internal Medicine; Visit Provider Internal Medicine
DX: R41.0 Disorientation, unspecified (principal)
CPT/HCPCS: 70551

== ENCOUNTER → 2023-12-03 | Outpatient (CLI) | payer OTHER, SELFPAY ==
--- NOTE | 2023-12-03 07:54 | CT_ITS ---
STUDY: CT ABDOMEN AND PELVIS WITHOUT CONTRAST REASON FOR EXAM: Female, 58 years old. Generalized abdominal pain. RADIATION DOSAGE (If Supplied By Facility): CTDIvol = ( 20.41 ) mGy, DLP = ( 1137.40 ) mGycm TECHNIQUE: Transaxial images were obtained from the dome of the diaphragm to the symphysis pubis without oral contrast, and without intravenous contrast. Sagittal and coronal images were reconstructed. Individualized dose optimization techniques were used for this CT. COMPARISON: Comparison is made with prior study of June 05, 2022. FINDINGS: The visualized lung bases are unremarkable. The visualized portions of the heart are within normal limits. Normal liver. Normal gallbladder and extrahepatic biliary system. Normal spleen. Normal pancreas. Normal bilateral adrenal glands. Punctate calculus in the lower pole calyx of the right kidney. Normal left kidney. Normal visualized stomach. Normal small intestine. Normal colon. The patient is status post appendectomy. There is scattered atherosclerotic calcification of the abdominal aorta, without a demonstrated aneurysm. Normal inferior vena cava. There is a small retroperitoneal lymphadenopathy with enlarged nodes no greater than 10mm in the short axis diameter. Normal urinary bladder. There is a 3.3 cm cyst in the right ovary. Bilateral tubal ligation clips are seen. There is an umbilical hernia containing fat. The neck of the hernia measures 3.9 cm. Normal osseous structures. CT/Abdomen/Pelvis without Cont IMPRESSION: Umbilical hernia containing fat. The neck of the hernia measures 3.9 cm. Punctate calculus in the lower pole calyx of the right kidney. Electronically Signed: Deangelo Meyer MD at 13:46 EDT ,
== END | disposition home or self-care (01) ==
LOC: CT 07:50
PROVIDERS: PCP Internal Medicine; Referring Provider Internal Medicine; Visit Provider Internal Medicine
DX: R10.84 Generalized abdominal pain (principal)
CPT/HCPCS: 74176

== ENCOUNTER 2023-12-21 09:00 | Outpatient (RCR) | payer OTHER, SELFPAY ==
--- NOTE | 2023-12-21 09:31 | HP.PTDCSUM ---
Discharge Summary D/C summary: It has been my pleasure to treat ANN JEFFERY referred by Dr. Ángela Mario DO, with the diagnosis of poor balance for a total of 5 visit(s). Discharge Date: 12/21/23 Please see the following information for a summary of their discharge status. Subjective Subjective: Pt has been feeling less unsteady and slight dizzy at times but not as much. She has an appt with ENT tomm. Overall Improvement % Improvement: 90 Objective Objective/Function: Pt had slight off feeling when looking R and then up diagonal overhead and on the opposite side as well. Goals Goal 1:: I HEP Goal Progress: Goal Met Goal 2:: Be able to stand up without getting dizziness Goal Progress: Goal Met Goal 3:: Be able to walk with horizontal and vertical head turns without having LOB or dizziness Goal Progress: Goal Met Goal 4:: Be able to stand on foam with EC X 1 min without losing her balance or feeling unsteady Plan Plan: Pt to keep practicing looking R or L and then diaganol at home. DC PT D/C Information Discharge Comments: DC PT to HEP d/c sentence: If there are questions or concerns regarding this patient's physical therapy, please feel free to call me at [phone]. Thank you for the referral of this patient. Sincerely, Pauline Rutledge, MPT Balance/Gait/Functional tests Balance/Special Test Scores Functional Gait Assessment Score: 18 % Disability: 40.0000 CATSIB Score (Max score 120 seconds): 108 Lower Extremity Functional Score: 73 Improvement % Improvement: 90
== END 2023-12-21 19:00 | disposition home or self-care (01) ==
LOC: PT 09:00
PROVIDERS: PCP Internal Medicine; Referring Provider Internal Medicine; Visit Provider Internal Medicine
DX: R26.81 Unsteadiness on feet (principal)
CPT/HCPCS: 97110; 97162

== ENCOUNTER → 2023-12-30 | Outpatient (CLI) | payer OTHER, SELFPAY | END | disposition home or self-care (01) | LOC: LABSPEC 10:34 | PROVIDERS: PCP Internal Medicine; Visit Provider Surgery | DX: K42.9 Umbilical hernia without obstruction or gangrene (principal) | CPT/HCPCS: 87081 ==

== ENCOUNTER 2024-01-27 05:52 | Day surgery (SDC) | payer OTHER, SELFPAY ==
[2024-01-27] VITALS (12 sets, daily range): BP systolic 104–159; BP diastolic 73–99; PULSE 51–70; RESP 14–16; TEMP 36.1–36.2; O2SAT 65–99; BMI 37.0
[2024-01-27] MEDS: Lactated Ringers 1,000 ML 15 ML IV (06:43)
[2024-01-27] MEDS: 0.9% Normal Saline (Pres. free 10 ML Vial (07:05)
[2024-01-27] MEDS: Bupivacaine 0.25% 30 ML Vial (07:05)
[2024-01-27] MEDS: BUPIVACAINE LIPOSOME/PF 20 ML VIAL OPERA.SITE (07:14)
--- NOTE | 2024-01-27 07:16 | PCM.HP.BLA ---
History and Physical Date of Admission: 01/27/24 Date of Service: 12/30/23 MR#: [id number] Acct: [id number] Name: ANN JEFFERY Rep #: [id number] : 1965 Provider: Dr. Ernesto Hoyos MD Age/Sex: 58/F Location: [facility] Status: Signed Intake Vital Signs 11/22/2399:58 12/29/2408:36 Height 5 ft 1.81 in 5 ft 1 in Weight: 210 lb BMI 39.6 BP 143/85 H Blood Pressure Location Rt brachial Position Sitting Respiration 17 Pulse 59 L Pulse Source Monitor Pulse Oximetry (%) 98 Oxygen Delivery Method room air Intake Visit Reasons: Hernia Chief Complaint: hernia Is patient in pain?: No Allergies Penicillins [PCN] Allergy (Verified 12/30/23 09:37) Hives Medications NK 06/05/22 [History Confirmed 12/30/23] [facility] Medical History (Updated 01/04/24 @ 17:[address] Ernesto Hoyos MD) Streptococcus A carrier or suspected carrier Surgical History (Updated 12/30/23 @ 09:36 by Destinee Corcoran) History of appendectomy History of tubal ligation Hx of tonsillectomy Social History (Updated 12/30/23 @ 09:36 by Destinee Corcoran) Smoking Status: Former smoker alcohol intake: never substance use type: does not use HPI HPI HPI: Patient is a 58-year-old female who presents for complaint of a umbilical hernia. She is referred from Dr. Mario. She is known to me from a laparoscopic appendectomy performed 06/06/2022. She shares that following her appendectomy she had pain at the center of her stomach that persisted for some time. She then notes that she went on to develop a cold and had coughing. After that illness she noted a bubble in her stomach. Since that time she has been concerned for a hernia. She acknowledges that despite giving up things such as coffee, gluten, sugar, etc. she no longer has pain from this area but has experienced a 17 pound weight gain. Around the time of patient's recovery from her appendectomy we had discussed proceeding with a colonoscopy, but patient states that she never went for this colonoscopy and it is her firm belief that the more poking and prodding that is done the more things happen. She does confirm that there has been no change to her bowel habits with this hernia. Patient has no personal history of smoking. Patient has no personal history of recurrent cutaneous infections including staph. Pertinent surgical history includes: Laparoscopic appendectomy. Patient completed CT of the abdomen and pelvis on 12/03/2023 which showed a 3.9 x 3.0 cm umbilical hernia. ROS General General: Yes weight change; No appetite, fatigue, colon cancer, breast cancer or weakness HEENT HEENT: No difficulty swallowing, eye injury, eye surgery, swollen glands or hoarseness Endo Endocrine: No thyroid disease, diabetes mellitus, thyroid cancer, Hair loss, heat intolerance or cold intolerance Skin Skin: No rash or changing moles Musc Musculoskeletal: No back problems, arthritis, rheumatoid arthritis, gout or joint pain Cardio Cardiovascular: Yes high blood pressure; No murmur, pacemaker, heart disease, atrial fibrillation, heart attack, heart stent, palpitations, shortness of breat with exertion or chest pain Psych Psychiatric: No depression, anxiety or hearing voices Resp Respiratory: No shortness of breath, No sleep apnea, No cough, No COPD, No asthma, No emphysema and No wheezing Gastro Gastrointestinal: Yes abdominal pain, No nausea or vomiting, No diarrhea, No constipation, No blood in stool, No acid reflux, No hemorrhoids, No ulcers, No gallbladder problem and No black,tarry stools Sb Hematologic: No blood thinners, No blood disorders, No bleeding, No anemia and No blood clots Neuro Neurologic: No system reviewed and no additional complaints, except as documented, No as per HPI, No abnormal gait, No abnormal hearing, No abnormal movements, No abnormal speech, No behavioral changes, No burning sensations, No confusion, No convulsions, No disequilibrium, No dizziness, No localized weakness, No frequent falls, No headache(s), No lack of coordination, No loss of vision, No memory loss, No numbness, No other visual disturbances, No radicular pain, No restless legs, No sensory deficit, No syncope, No tingling, No tremor(s), No weakness and No other Exam Const General: cooperative, comfortable and anxious Orientation: alert, awake and oriented x3 Resp Effort & Inspection: normal respiratory effort GI Other: Obese, well-healed port site scars, soft, nontender to palpation. Barely perceptible hernia defect with palpation of the umbilicus given patient's habitus Assessment and Plan Assessment and Plan (1) Hernia: (2) Umbilical hernia: Status: Chronic Comment: Patient is a 58-year-old female who presents with progressive complaints from a umbilical hernia that is developed over the last couple of years. She has minimal symptoms from this hernia but is concerned about the chcf ramifications. She states she initially agreed to today's visit simply to see that there was nothing life-threatening about leaving the hernia as is. During today's visit I showed Mrs. Jeffery her original CT imaging and demonstrated to her that the fascial defect at this hernia is greater than 3 cm. I shared with her that the hernia is at least intermittently occluded by intraperitoneal fat, however, given its size it is at risk for bowel incorporation. Thus, it is my recommendation that she proceed with hernia repair electively to mitigate her risk for complication. Mrs. Jeffery all initially expresses reluctance and shares a story about a friend to had a postoperative complication, but ultimately concluded she sees the rationale behind my recommendation and does wish to pursue recommendation as described. Types of umbilical hernia repair were reviewed and ultimately I recommended minimally invasive hernia repair with mesh to provide for wider underlay. Patient is receptive of this specific recommendation as well. Plan: ? Robot-assisted umbilical hernia repair with mesh with plans for outpatient disposition postoperatively ? Nasal swab today for assessment of staph/MRSA colonization I have examined the patient and the H&P has been reviewed. There are no clinical changes since date of exam. Patient's nasal swab was completed and was negative. Procedure and post procedure activity restrictions were reviewed. Will now proceed to the operating room for planned robot-assisted umbilical hernia repair with mesh.
[2024-01-27] MEDS: Clindamycin 900 MG/50 ML BAG 75 MG IV (07:29)
--- NOTE | 2024-01-27 11:25 | OP.PCM_ITS ---
Report of Operation Date of Procedure: 01/27/24 Pre-Operative Diagnosis: Ventral hernia Post-Operative Diagnosis: Incisional hernia Surgery/Procedure Performed:: 1. Robotic transabdominal preperitoneal incisional hernia repair with mesh 2. Transversus abdominis plane block Surgeon: Ernesto Hoyos veterinary medicine scientist: Clarisse Campbell Type of Anesthesia: General/Supplemental Anesthesiologist: Alok Guerrier Specimen's removed: None Drains: None Estimated Blood Loss (mL): 20 Description of Procedure: After appropriate identification in the preoperative holding area, the patient was brought to the operating room suite where she was positioned supine the operating table. Preoperative antibiotics were administered. Patient was then induced with a general anesthetic. Patient's abdomen was prepped and draped in the usual sterile fashion. A formal timeout followed to confirm patient and procedure. Procedure was begun with a Veress entry at Casarez's point. Once the set point pressure was reached, this Veress needle was exchanged for an optical trocar and an optical entry was made in this location. Laparoscopic investigation revealed no inadvertent injury to the viscera below. 2 additional 8 mm robotic trochars were placed along the abdominal wall laterally taking care to avoid the bony prominences of the costal margin and the ASIS. A transversus abdominis plane block was created with 82 mL under laparoscopic vision as these ports were placed. The robot was then brought in and docked in standard fashion. Robotically a peritoneal flap was raised approximately 2 cm medial from my trocars and carried this away towards the contralateral abdominal wall. Great care was taken to lower the peritoneum off of the posterior rectus sheath and avoid any rents in the peritoneal flap. Perforating vessels were sealed with bipolar energy to maintain hemostasis as this flap dissection proceeded. I then addressed the hernia directly by opening the scar tissue about the hernia sac and carefully applying manual traction downward until the hernia was fully reduced. Unfortunately despite this care the dense scarring and thin hernia sac resulted in a significant peritoneal opening directly deep to the hernia defect. The flap was then further dissected laterally until it appeared we had adequate width for mesh placement. The hernia defect was closed with a #1 stratafix suture by running the fascial defect closed and then running the suture back upon itself. Next a custom sized Ventralight mesh trimmed to dimensions of 8 x 11 cm was introduced into the peritoneum and a 3-0 V-Loc suture was used to chandelier the mesh. This V-Loc suture was then run towards the operating side of the opening and then circumferentially about the mesh. In order to maintain a flat lie of the mesh in proper orientation, a 3-0 Vicryl suture was then used to loosely tacked the mesh in the cephalad direction as well as reinforce the 2 sides of the mesh against the abdominal wall. Distally against the right abdominal sidewall the mesh was tucked nicely into the preperitoneal pocket and did not appear to be mobile. Lastly the peritoneum was closed with3-0 V-Loc suture in a bidirectional fashion. The initial closure revealed the attenuation of the peritoneum and a number of rents so I elected to incorporate the patient's hernia sac and the closure on the way back across the flap to reinforce the peritoneal closure. This resulted in a nice flat lie of the remaining peritoneum with minimal defects to expose the mesh to the underlying viscera. After confirming correct needle counts, the robot was then undocked and the trocars were removed. Additional local anesthetic was instilled and the port sites were closed with interrupted 4-0 Monocryl in subcuticular fashion. Steri-Strips and OpSite dressings were applied. Patient was transferred to PACU for ongoing care. Grafts/Implants Used: [facility] ST, reference [id number], Lot [id number] Complications None Admit VTE Documentation VTE Mechan Device Prophylaxis: SCD's
--- NOTE | 2024-01-27 11:27 | DCINST_ITS ---
Discharge Instructions Diet Discharge Diet: No restrictions Activity Discharge Activity: May Not Drive (While taking narcotic pain medication) and May Shower May shower in (days): 2 Ice area for (Minutes): 20 Lifting Restrictions: No lifting greater than 10 pounds for the next 5 weeks Dressing / Incision Call your doctor if your incision/area has: Continuous Slow Oozing, Increased Pain/ Swelling, Increased Redness, Foul Smelling Discharge and Swelling at the incision site Call your doctor if you observe: Fever of 101 or Higher, Inability to urinate and Inability to have a bowel movement Change Dressing in: 2 days (Please leave Steri-Strips intact until they fall off spontaneously or are taken off at your follow-up visit) Remove Dressing in: 2 days Cleanse incision/area with: Soap & Water and Keep Dressing Clean & Dry Follow Up Care Please Follow Up With: Ernesto Hoyos MD When: 1 week postop Test Results: Test results from this visit will be discussed in further detail at your follow- up appointment, if applicable. Discharge Plan Admission Primary Reason for Your Visit: Ventral hernia repair Attending Provider: Ernesto Hoyos Primary Care Provider: Ángela Mario Instructions Print Language: Georgian Discharge Orders/Prescriptions Prescriptions: New oxycodone 5 mg tablet 5 mg PO Q6H PRN (Reason: pain) 5 Days Qty: 14 0RF Continued cholecalciferol (vitamin D3) [Vitamin D3] 25 mcg (1,000 unit) capsule 25 mcg PO DAILY Vitamin B-12 50 mcg tablet 50 mcg PO DAILY Collagen Skin Renewal 30-833.3 mg tablet 1 tab PO DAILY magnesium 250 mg tablet 250 mg PO DAILY omega-3 fatty acids [Fish Oil] PO Referrals / Follow Up: Ángela Mario DO [Primary Care Provider] - Disposition Disposition (needs filled in before D/C Order can be placed): Home, Self Care
[2024-01-27] MEDS: Acetaminophen 500 MG Tablet 1000 MG PO (14:39)
== END 2024-01-27 15:39 | disposition home or self-care (01) ==
LOC: SDC 05:52 → AC 05:53
PROVIDERS: PCP Internal Medicine; Referring Provider Surgery; Visit Provider Surgery
PROC: (CPT 49593; principal; 2024-01-27 07:10)
DX: K43.2 Incisional hernia without obstruction or gangrene (principal); Z87.891 Personal history of nicotine dependence; Z98.51 Tubal ligation status; K42.9 Umbilical hernia without obstruction or gangrene; Z90.49 Acquired absence of other specified parts of digestive tract
CPT/HCPCS: 49593; 00752; S2900; J7120; C1781; J2405; J3490

== ENCOUNTER 2025-07-04 20:11 | Emergency (ER) | payer OTHER, SELFPAY ==
[2025-07-04] VITALS (8 sets, daily range): BP systolic 169–181; BP diastolic 97–120; PULSE 60–68; RESP 14–22; TEMP 36–36.7; O2SAT 95–97; BMI 38.9
[2025-07-04 22:01] LABS: Anion Gap 11 (5-15); BUN 21 mg/dL (4-19); BUN/Creat Ratio 20.3 RATIO (10-20); Calcium,Total 8.8 mg/dL (7.6-11.0); Carbon Dioxide 27.4 mmol/L (21.0-32.0); Chloride 105 mmol/L (98-108); Estimated Creatinine Clearance 64.25 ml/min (50-250); Glucose 100 mg/dL (70-99); Potassium 3.7 mmol/L (3.3-5.1)
== END 2025-07-04 23:19 | disposition home or self-care (01) ==
PROVIDERS: Emergency Provider Emergency Medicine; PCP Internal Medicine; Visit Provider Emergency Medicine
DX: G51.0 Bell's palsy (principal); Z87.891 Personal history of nicotine dependence; R29.90 Unspecified symptoms and signs involving the nervous system; R29.702 NIHSS score 2; Z79.899 Other long term (current) drug therapy
CPT/HCPCS: 70496; 70498; 80048; 82962; 99282; Q9967; A4216

== ENCOUNTER 2025-07-16 15:03 | Emergency (ER) | payer OTHER, SELFPAY ==
[2025-07-16 15:03] VITALS: BP 174/102; PULSE 80; RESP 14; TEMP 36.8; O2SAT 98; BMI 38.2
[2025-07-16 15:14] VITALS: BP 159/93; PULSE 78; RESP 18; O2SAT 99
--- NOTE | 2025-07-16 15:14 | EKG12_ITS ---
Test Reason : stroke team
--- NOTE | 2025-07-16 15:14 | CT_ITS ---
PROCEDURE: CT/STROKE Brain/Head without Cont
--- NOTE | 2025-07-16 15:14 | CT_ITS ---
PROCEDURE: CT/STROKE CTA Head AND Neck W/Con
[2025-07-16 15:27] VITALS: BMI 39.0
[2025-07-16 15:29] LABS: Hematocrit 47.5 % (37-47); Hemoglobin 16.3 g/dL (12.0-15.0); Immature Granulocytes Count 0.030 X10^3/uL (0.0-0.0); Mean Corp Hgb Conc 34.3 g/dL (32-36); Mean Corpuscular Volume 86.1 fL (81-99); Mean Platelet Vol. 9.4 fl (6.2-12.0); NRBC Flagged by Analyzer 0 % (0-5); Platelet Count 263 K/mm3 (150-450); RBC Distribution Width CV 13.2 % (11.6-14.6); RBC Distribution Width SD 39.8 fl (35.1-43.9); Red Blood Count 5.52 M/mm3 (4.2-5.4); White Blood Count 9.2 K/mm3 (4.4-11.0)
[2025-07-16 15:53] LABS: Anion Gap 10 (5-15); BUN 20 mg/dL (4-19); BUN/Creat Ratio 19.9 RATIO (10-20); Calcium,Total 9.6 mg/dL (7.6-11.0); Carbon Dioxide 28.2 mmol/L (21.0-32.0); Chloride 103 mmol/L (98-108); Estimated Creatinine Clearance 65.62 ml/min (50-250); Glucose 98 mg/dL (70-99); Potassium 4.1 mmol/L (3.3-5.1); Troponin T High Sensitivity 13 ng/L (<=14)
[2025-07-16 16:03] VITALS: BP 152/112; PULSE 79; RESP 21; O2SAT 100
--- NOTE | 2025-07-16 16:10 | ED.RN ---
called report to Cindy at [facility] at this time all questions answered
[2025-07-16 16:39] LABS: Prothrombin Time (Protime)PT. 13.3 SECONDS (11.7-14.9)
[2025-07-16 16:40] LABS: Partial Thromboplast Time 32.7 Seconds (24.1-36.2)
--- NOTE | 2025-07-16 16:51 | ED.VIS.STROK ---
HPI History of Present Illness Chief Complaint: Stroke Alert Narrative Narrative: Patient is a 60-year-old female presenting to the emergency department for possible strokelike symptoms. 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 She states that yesterday around 4 PM she started to develop similar symptoms on the right side. States she is unable to close her right eye. Is endorsing tingling and numbness to her right sided face as well. States she is having trouble speaking or drinking/eating due to facial drooping bilaterally. Stroke team was called in triage prior to my evaluation of the patient. She denies any headache, fevers or chills. Denies any numbness or weakness in her arms or legs. Denies any neck or back pain. States she has been taking her medications as prescribed that was diagnosed for her left sided Charles's palsy. She denies any recent travel or activities in any wooded areas. 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 Home Medications ?Medication ?Instructions ?Recorded ?Last Taken ?Type ascorbic acid 30 mg-collagen, 1 tab PO DAILY 01/20/24 01/23/24 History hydrolyzed 833.3 mg tablet (Collagen Skin Renewal) cholecalciferol (vitamin D3) 25 25 mcg PO DAILY 01/20/24 01/23/24 History mcg (1,000 unit) capsule (Vitamin D3) magnesium 250 mg tablet 250 mg PO DAILY 01/20/24 01/23/24 History prednisone 20 mg tablet 60 mg (3 x 20 mg) PO DAILY #15 07/04/25 Unknown Rx TABLETS valacyclovir 1 gram tablet 1,000 mg PO TID 7 days #21 tabs 07/04/25 Unknown Rx Allergy/AdvReac Type Severity Reaction Status Date / Time Penicillins (PCN) Allergy Hives Verified 07/16/25 15:04 Surgical History Status post repair of ventral hernia History of appendectomy History of tubal ligation Hx of tonsillectomy Social History Smoking Status: Former smoker alcohol intake: never substance use type: does not use ROS ROS ED ROS Narrative See HPI EXAM Physical Exam Narrative Exam Narrative: Vital signs: Reviewed General: Alert and orientedx3. No acute distress HEENT: Head is normocephalic and atraumatic, sinuses nontender, pupils 2mm equal round and reactive. Nares are patent. Oropharynx and throat exams normal. Neck: Supple without lymphadenopathy nontender Cardiovascular: Regular rate and rhythm, no murmurs. No rubs or gallops. Normal S1 and S2 Respiratory: Clear to auscultation bilaterally. No wheezes, rales, rhonchi Abdominal: Soft and nontender. Normal bowel sounds. No guarding or rebound. Nonsurgical abdomen Extremities: No tenderness. No bruising. Normal range of motion. Normal sensation. Skin: No rash or redness. Neurological: Patient has bilateral facial droop. Unable to smile. She is unable to close bilateral eyes. When asked to raise her eyebrows she has no wrinkles on either side of her forehead. The rest of the physical exam is unremarkable Const Vital Signs: 07/16/25 15:03 07/16/25 15:14 07/16/25 15:26 Temperature 98.2 F Temperature Source Oral Pulse Rate 80 78 Respiratory Rate 14 18 Blood Pressure 174/102 H 159/93 H Blood Pressure Mean 126 115 Pulse Ox 98 99 Oxygen Delivery Method Room Air Room Air 07/16/25 16:03 Temperature Temperature Source Pulse Rate 79 Respiratory Rate 21 H Blood Pressure 152/112 H Blood Pressure Mean 125 Pulse Ox 100 Oxygen Delivery Method Room Air MDM MDM MDM Narrative Medical decision making narrative: Patient is a 60-year-old female presenting to the emergency department for strokelike symptoms. Patient was seen and examined immediately on arrival after stroke team was called by nursing staff in triage. On my exam it appears to be a bilateral Charles's palsy given his involving the forehead as well however very rare that it would be a bilateral bells palsy. For this reason stroke team was kept and will obtain CT brain and CTA head and neck imaging. Differential includes but is not limited to: Lyme disease, stroke, Guillain-White?, MS CT of the brain with no evidence of intracranial hemorrhage or acute ischemia. CTA of the head and neck with minimal plaque formation at the origin of the right and left internal carotid arteries causing less than 20% stenosis. Dominant right vertebral artery. Questionable small venous angioma in the lateral aspect of the right frontal lobe superiorly. This information was documented as relayed to me directly however it was not. [facility] telestroke neurologist Dr. Guzman evaluated the patient and also agrees that it seems to be a bilateral Charles's palsy however recommended extensive workup including MRI, LP and EMG. States that the patient will be need transfer to [facility] for further workup and management. CBC with no leukocytosis and hemoglobin is 16.3. BMP with no significant abnormalities. Troponin within normal limits. EKG shows normal sinus rhythm with a sinus arrhythmia. No ischemic changes noted. Patient is agreeable with being transferred. She will be transferred by ambulance to [facility]. Clinical impression Bilateral Charles's palsy History & Record Review Discussion w/independent historian: Patient and Family Additional record(s) reviewed:: Prior ED visit and Prior labs Lab Data Attestation: I reviewed the patient's lab results. Labs: Laboratory Results - last 24 hr 07/16/25 15:20 WBC 9.2 RBC 5.52 H Hgb 16.3 H Hct 47.5 H MCV 86.1 MCH 29.5 MCHC 34.3 RDW Std Deviation 39.8 RDW Coeff of Cleo 13.2 Plt Count 263 MPV 9.4 Immature Gran % (Auto) 0.300 Neut % (Auto) 57.9 Lymph % (Auto) 30.9 Falls % (Auto) 7.8 Eos % (Auto) 2.6 Baso % (Auto) 0.5 Absolute Neuts (auto) 5.3 Absolute Lymphs (auto) 2.85 Nucleated RBC % 0 PT 13.3 INR 1.0 APTT 32.7 Sodium 141 Potassium 4.1 Chloride 103 Carbon Dioxide 28.2 Anion Gap 10 BUN 20 H Creatinine 0.99 Estim Creat Clear Calc 65.62 Est GFR (MDRD) Non-Af 66 BUN/Creatinine Ratio 19.9 Glucose 98 Calcium 9.6 Troponin T High Sens 13 Radiography Diagnostic Testing: Clinical Impression(s) from Imaging Studies Brain CT 07/16/25 15:14 IMPRESSION: 1. No evidence of intracranial hemorrhage or acute ischemia at this time. Stroke Alert: As above The critical findings in the findings and impression above were relayed directly by me by telephone to Jessika Coleman on 07/16/2025 at 3:29 pm EST with readback verification. Reading Location: [id number] Head/Neck CTA 07/16/25 15:14 IMPRESSION: Minimal plaque formation at the origin of the right and left internal carotid arteries causing less than 20% stenosis. Dominant right vertebral artery. Questionable small venous angioma in the lateral aspect of the right frontal lobe superiorly. Red Alert: ? Small venous angioma in right frontal lobe The critical findings in the findings and impression above were relayed directly by me by telephone to Jessika Coleman on 07/16/2025 at 3:45 pm with readback verification. Reading Location: [id number] Discharge Plan Triage Chief Complaint: Stroke Alert ED Provider: Jessika Coleman Dx/Rx/DC Orders Prescriptions: No Action cholecalciferol (vitamin D3) [Vitamin D3] 25 mcg (1,000 unit) capsule 25 mcg PO DAILY Collagen Skin Renewal 30-833.3 mg tablet 1 tab PO DAILY magnesium 250 mg tablet 250 mg PO DAILY prednisone 20 mg tablet 60 mg PO DAILY Qty: 15 0RF valacyclovir 1 gram tablet 1,000 mg PO TID 7 Days Qty: 21 0RF Primary Care Provider: Ángela Mario Referrals: Ángela Mario DO [Primary Care Provider, Internal Medicine] Print Language: [place] NIHSS NIHSS 1a. Level of Consciousness: 0 - Alert; keenly responsive 1b. LOC Questions: 0 - Answers BOTH questions correctly 1c. LOC Commands: 0 - Performs BOTH tasks correctly 2. Best Gaze: 0 - Normal 3. Visual: 0 - No visual loss 4. Facial Palsy: 3 - Complete paralysis of one or both sides 5a. Left Arm: 0 - No drift; arm holds 90 (or 45) degrees for full 10 seconds 5b. Right Arm: 0 - No drift; arm holds 90 (or 45) degrees for full 10 seconds 6a. Left Le - No drift; leg holds 30-degree position for full 5 seconds 6b. Right Le - No drift; leg holds 30-degree position for full 5 seconds 7. Limb Ataxia: 0 - Absent 8. Sensory: 0 - Normal; no sensory loss 9. Best Language: 0 - No aphasia; normal 10. Dysarthria: 0 - Normal 11. Extinction and Inattention: 0 - No abnormality Total: 3 Stroke Questions Stroke Team Activated: Yes Reviewed Inclusion/Exclusion criteria: Yes IV Thrombolytic Administered: No No contraindications from thrombolytic administration: No
[2025-07-16 17:22] VITALS: BP 167/112; PULSE 75; RESP 16; TEMP 36.8; O2SAT 100
== END 2025-07-16 17:40 | disposition short-term general hospital (02) ==
PROVIDERS: Emergency Provider Student in an Organized Health Care Education/Training Program; PCP Internal Medicine; Visit Provider Student in an Organized Health Care Education/Training Program
DX: G51.0 Bell's palsy (principal); Z87.891 Personal history of nicotine dependence; Z79.899 Other long term (current) drug therapy
CPT/HCPCS: 70450; 70496; 70498; 80048; 82962; 84484; 85025; 85610; 85730; 93005; 99285; Q9967; A4216